=== PATIENT | male | born 1945 | race Caucasian/White ===

== ENCOUNTER 2018-04-04 11:11 | Outpatient (CLI) | payer MEDICARE, BC, SELFPAY ==
[2018-04-04 12:53] LABS: Iron 290 ug/dL (50-175); Total Iron Binding Capacity 324 ug/dL (250-450); Transferrin Sat 90 % (20-55)
[2018-04-05 10:01] LABS: Hepatitis C Ab w Rflx HCV PCR Negative (NEGAT)
[2018-04-05 10:18] LABS: Transferrin 259 mg/dL (201-352)
== END 2018-04-04 11:31 ==
PROVIDERS: PCP Internal Medicine; Visit Provider Internal Medicine
DX: R74.0 Nonspecific elevation of levels of transaminase and lactic acid dehydrogenase [LDH] (principal)
CPT/HCPCS: 36415; 86803; 83540; 83550; 84466

== ENCOUNTER 2018-08-02 10:13 | Outpatient (CLI) | payer MEDICARE, BC, SELFPAY ==
[2018-08-02 11:32] LABS: Absolute Basophil Count 0.05 k/cumm (0.0-0.2); Absolute Eosinophil Count 0.19 k/cumm (0.0-0.7); Absolute Monocyte Count 0.53 k/cumm (0.11-0.7); Absolute Neutrophil Count 2.26 k/cumm (1.2-6.7); Eosinophils % 3.6; HCT 45.6 % (40.0-50.0); HGB 15.8 g/dL (13.5-17.5); Lymphocytes % 42.1; Mean Corp. HGB Concentration 34.6 g/dL (32.0-36.0); Mean Corpuscular Hemoglobin 34.6 pg (27.0-33.0); Mean Platelet Volume 11.6 fL (8.0-11.0); Monocytes % 10.1; Neutrophils % 43.2; Platelet Count 101 x1000/uL (130-400); RBC 4.56 m/cumm (4.50-6.00); White Blood Cell Count 5.23 k/cumm (4.4-10.8)
[2018-08-02 12:00] LABS: Iron 124 ug/dL (50-175); Total Iron Binding Capacity 317 ug/dL (250-450); Transferrin Sat 39 % (20-55)
[2018-08-02 12:14] LABS: ALT 29 U/L (12-78); AST 34 U/L (15-37); Albumin 3.2 g/dL (3.4-5.0); Alkaline Phosphatase 140 U/L (46-116); Anion Gap 6.4 mmol/L (3-11); BUN 7 mg/dL (7-18); Bilirubin, Total 1.3 mg/dL (0.2-1.0); CO2 29.6 mmol/L (21.0-32.0); CREATININE 0.95 mg/dL (0.70-1.30); Calcium 9.2 mg/dL (8.5-10.1); Chloride 102 mmol/L (98-107); Ferritin 287 ng/mL (8-388); Glucose 129 mg/dL (70-100); Sodium 138 mmol/L (136-145); Total Protein 7.6 g/dL (6.4-8.2)
[2018-08-09 23:43] LABS: Specimen WB Whole Blood
== END 2018-08-02 10:33 ==
PROVIDERS: PCP Internal Medicine; Visit Provider Internal Medicine Hematology & Oncology
DX: D64.9 Anemia, unspecified (principal); R79.0 Abnormal level of blood mineral
CPT/HCPCS: 36415; 80053; 81256; 82728; 83540; 83550; 85025

== ENCOUNTER 2018-08-05 00:21 | Outpatient (CLI) | payer MEDICARE, BC, SELFPAY ==
--- NOTE | 2018-08-05 09:16 | DI.US_ITS ---
SYMPTOMS/DIAGNOSIS: ABNORMAL LFTS, ABNORMAL IRON SATURATION, R79.0 ABDOMINAL ULTRASOUND: Routine examination was performed. The aorta is unremarkable, as is the IVC. The liver is enlarged measuring 21 cm. There is diffuse increased echogenicity of the liver consistent with hepatic steatosis. No hepatic mass is seen. The gallbladder and bile ducts are unremarkable. The visualized portions of the pancreas are unremarkable, as is the spleen. The right kidney has a normal appearance. The left kidney is normal in size. There is a 4.9 x 4 x 4 cm hypoechoic solid mass arising from the kidney. It shows increased blood flow. IMPRESSION: 1. A 4.9 cm solid left renal mass. CT scan of the pelvis is recommended with contrast for further evaluation. Renal neoplasm should be considered. 2. Hepatomegaly and hepatic steatosis.
== END 2018-08-05 00:41 ==
PROVIDERS: PCP Internal Medicine; Visit Provider Internal Medicine Hematology & Oncology
DX: N28.89 Other specified disorders of kidney and ureter (principal); R16.0 Hepatomegaly, not elsewhere classified; R79.89 Other specified abnormal findings of blood chemistry; K76.0 Fatty (change of) liver, not elsewhere classified
CPT/HCPCS: 76700

== ENCOUNTER 2018-08-23 01:34 | Outpatient (CLI) | payer MEDICARE, BC, SELFPAY ==
--- NOTE | 2018-08-23 08:30 | DI.CT_ITS ---
SYMPTOM/DIAGNOSIS: EVALUATE LT KIDNEY MASS ON US, N28.[address]: Comparison is made with ultrasound dated 08/05/18 which showed a mass at the lower pole of the left kidney. Images were performed from the lung bases through the ischial tuberosities after IV and oral contrast. There is an irregular mass emanating from the lower pole of the left kidney with irregular borders. It measures 6.4 by 4 by 3.5 cm. There is no evidence of hydronephrosis. The right kidney and adrenal glands appear normal. The heart size is normal. The lung bases are clear. The liver shows fatty infiltration and enlargement. No focal liver lesions or biliary dilatation is seen. The gallbladder is unremarkable. The spleen is mildly enlarged. Pancreas is somewhat atrophic. There are bilateral hip prostheses creating artifact in the pelvis. A right sided bladder diverticulum is partially visible. There appears to be bladder wall thickening. The prostate is obscured. There is mild sigmoid diverticulosis. No small bowel dilatation is seen. The aorta shows calcification but is normal in diameter. 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 IMPRESSION: Mass at the lower pole of the left kidney is suspicious for renal cell carcinoma. No metastatic disease is identified.
[2018-08-23 08:34] LABS: ALT 32 U/L (12-78); AST 30 U/L (15-37); Albumin 3.2 g/dL (3.4-5.0); Alkaline Phosphatase 138 U/L (46-116); BUN 7 mg/dL (7-18); Bilirubin, Total 1.1 mg/dL (0.2-1.0); CREATININE 0.91 mg/dL (0.70-1.30); Chloride 103 mmol/L (98-107); Glucose 138 mg/dL (70-100); Potassium 3.9 mmol/L (3.5-5.1); Sodium 139 mmol/L (136-145)
[2018-08-23] MEDS: Omnipaque 350 MG/ML 50 ML BTL IJ (08:54)
[2018-08-23] MEDS: Breeza Beverage 473 ML BTL PO (08:55)
[2018-08-23] MEDS: Omnipaque 350 MG/ML 100 ML BTL IJ (08:55)
[2018-08-23 13:51] LABS: Ferritin 276 ng/mL (8-388)
== END 2018-08-23 01:54 ==
PROVIDERS: PCP Internal Medicine; Visit Provider Internal Medicine Hematology & Oncology
DX: R79.0 Abnormal level of blood mineral (principal); N28.89 Other specified disorders of kidney and ureter; D41.02 Neoplasm of uncertain behavior of left kidney; R16.2 Hepatomegaly with splenomegaly, not elsewhere classified; K76.0 Fatty (change of) liver, not elsewhere classified; Z96.643 Presence of artificial hip joint, bilateral
CPT/HCPCS: 36415; 80053; 74177; 82728; J3490; Q9967

== ENCOUNTER 2018-11-09 10:17 | Outpatient (RCR) | payer MEDICARE, BC, SELFPAY | END 2018-11-15 23:59 | disposition home or self-care (01) | LOC: CR 10:17 | PROVIDERS: PCP Internal Medicine; Visit Provider Family Medicine | DX: Z51.89 Encounter for other specified aftercare (principal); I25.2 Old myocardial infarction ==

== ENCOUNTER 2018-12-16 11:54 | Outpatient (RCR) | payer MEDICARE, BC, SELFPAY | END 2018-12-16 23:59 | disposition home or self-care (01) | LOC: CR 11:54 | PROVIDERS: PCP Internal Medicine; Visit Provider Family Medicine | DX: Z51.89 Encounter for other specified aftercare (principal); I25.2 Old myocardial infarction | CPT/HCPCS: S9472 ==

== ENCOUNTER 2018-12-26 08:42 | Emergency (ER) | payer MEDICARE, BC, SELFPAY ==
[2018-12-26 08:46] VITALS: BP 121/54; PULSE 81; RESP 18; TEMP 37.1; O2SAT 99
--- NOTE | 2018-12-26 08:46 | ED.GENADUL_ITS ---
Discharge Plan Disposition Patient Disposition: HOME Condition: Stable Discharge Details Chief Complaint: Cellulitis Clinical Impression: Perineal abscess Primary Care Provider: Ngoc Jones ED Provider: Brigitte Green Home Meds and New Rx's Prescriptions: New amoxicillin-pot clavulanate [Augmentin] 875-125 mg tablet 1 tab PO BID Qty: 13 RF: 0 Continued aspirin 81 mg tablet,delayed release (DR/EC) 81 mg PO DAILY RF: 0 atorvastatin 80 mg tablet 80 mg PO DAILY RF: 0 lisinopril 2.5 mg tablet 2.5 mg PO DAILY RF: 0 metoprolol succinate 25 mg tablet extended release 24 hr 25 mg PO DAILY RF: 0 multivitamin tablet 1 tab PO DAILY RF: 0 pantoprazole 40 mg tablet,delayed release (DR/EC) 40 mg PO DAILY RF: 0 furosemide 40 mg tablet 40 mg PO DAILY RF: 0 naproxen sodium [Aleve] 220 MG tablet 440 mg PO PRN RF: 0 Discharge Instructions Instructions: Amoxicillin/Clavulanate Potassium (By mouth), Abscess (ED) Additional Instructions: Please return immediately to the emergency department if you develop any new or worsening symptoms or if you become otherwise concerned. It is extremely important that you attend your scheduled appointment with Dr. Zavaleta of surgery on at 10:00 as we discussed, and also that you call as soon as possible to make an appointment to be seen in follow-up by your primary care doctor. Referrals: Ngoc Jones MD [Primary Care Provider] - Emma Zavaleta DO [OSTEOPATHIC DOCTOR] - Discharge Data Discharge Date/Time-TO BE ENTERED AT DEPARTURE: 12/26/18 10:21 Medical Decision Making Merrill Shrestha is a 73 y/o man with history of GERD, recent partial kidney resection who presented to the emergency department with approximately 1 week of gradually increasing pain and swelling to the perineal area. On exam patient has perineal abscess without cellulitis. Bedside ultrasound shows fluid collection approximately 2 cm deep, does not involve scrotum or anus. Color Doppler negative for flow. Exam/history is not consistent with fourniers gangrene, sepsis, perirectal abscess. Anticipate incision and drainage, will discuss with surgery. FSBG okay. Discussed Pt presentation with Dr. Zavaleta of surgery, who will see patient in follow-up on . Bedside I&D performed with copious amount of purulent drainage, please see procedure note, culture sent. Patient tolerated procedure well without complications. Plan for augmentin Rx. Appointment scheduled with Dr. Zavaleta for 10 AM on . I had a lengthy discussion with the patient regarding return to emergency department precautions, importance of outpatient follow-up with surgery as scheduled and also with PCP, and home care. Patient verbalized understanding of the plan was amenable. Patient was discharged home with clear plan for outpatient follow-up. All questions were answered. Medical Records Medical records reviewed: Yes I reviewed the patient's medical records. HPI General Mode of arrival: ambulatory . Date/Time Provider Initiated Documentation: 12/26/18 08:44 . Limitations to Documentation: no limitations . Information obtained by: patient, RN notes reviewed and old records reviewed . HPI Narrative: Merrill Shrestha is a 73 y/o man with history of GERD, partial kidney resection 11/04 for neoplasm with no further requirement for treatment anticipated presenting to the emergency department with abscess. Patient reports that he has had 3 pilonidal cyst over the past 20 years. He reports that he has had approximately 1 week of gradually increasing pain and swelling to his general area. He reports that affected area (between scrotum and rectum) is not consistent with his prior pilonidal cyst, which he reports as superior to the rectum. Does not recall skin wound or trauma to the area. He denies pain with bowel movements, scrotal pain, pain with urination, any other pain, fevers, vomiting, diarrhea. Has been eating and drinking as usual. Patient feels well in his usual state of health. Related Data Home Medications Medication Instructions Recorded Confirmed naproxen sodium [Aleve] 440 mg PO PRN tab-cap 11/03/16 12/26/18 aspirin 81 mg tablet,delayed 81 mg PO DAILY 11/02/18 12/26/18 release atorvastatin 80 mg tablet 80 mg PO DAILY 11/02/18 12/26/18 furosemide 40 mg tablet 40 mg PO DAILY 11/02/18 12/26/18 lisinopril 2.5 mg tablet 2.5 mg PO DAILY 11/02/18 12/26/18 metoprolol succinate ER 25 mg 25 mg PO DAILY 11/02/18 12/26/18 tablet,extended release 24 hr multivitamin tablet 1 tab PO DAILY 11/02/18 12/26/18 pantoprazole 40 mg tablet,delayed 40 mg PO DAILY 11/02/18 12/26/18 release amoxicillin-pot clavulanate 1 tab PO BID #13 tab 12/26/18 [Augmentin] Previous Rx's Medication Instructions Recorded amoxicillin-pot clavulanate 1 tab PO BID #13 tab 12/26/18 [Augmentin] Allergies Allergy/AdvReac Type Severity Reaction Status Date / Time CAT DANDER Allergy Mild WATER EYES Uncoded 12/26/18 08:50 ENVIRONMENTAL/POLLEN Allergy Mild ITCHY NOSE Uncoded 12/26/18 08:50 WATERY EYES Review of Systems Review of Systems Constitutional: denies fevers Eyes: denies eye pain ENT: denies facial pain, dental pain, sore throat Cardiovascular: denies chest pain Respiratory: denies SOB, cough GI: denies abdominal pain, vomiting, diarrhea, tenesmus : denies flank pain, dysruria MSK: denies back pain, neck pain, arthralgias Skin: denies rash Neuro: denies headaches PFSH Surgical History Arthroplasty Total replacement of hip Family History Father Leukemia Grandfather Heart disease Grandmother Diabetes Social History Smoking/Tobacco Use Status: Never Alcohol Intake: former Drug use: Never Do you feel safe at home: Yes Do you feel safe in your relationship?: Yes Exam Narrative Exam Narrative: Constitutional: well and [id number], pleasant, conversing normally HENT: head atraumatic/normocephalic/normal inspection, mucous membranes moist Eyes: conjunctiva normal, sclera normal, pupils 3mm b/l Neck: no stridor, normal ROM, trachea midline Chest: normal inspection Resp: normal work of breathing, LCTAB Cardio: normal rate, normal rhythm, no murmur appreciated GI: abdomen soft, non-tender, non-distended : 3 x 5 cm area of fluctuance and tenderness just caudal to the scrotum, does not involve anus or perianal region, no drainage, no apparent skin wound, normal scrotum without tenderness or edema Back: normal inspection, no rash Skin: warm, dry, normal color, no rash Neuro: alert, not altered, grossly non-focal, normal tone Ext: no edema Psych: normal mood, normal affect, normal behavior Procedures Abscess I/D Site: Other (perineal) Local Anesthetic: Lidocaine 2% and With Epi Amount of anesthesia used (mL): 4 Technique: Incised with #11 Blade Irrigation: Yes Packing used?: Iodoform
[2018-12-26] MEDS: Lidocaine/Epinephri/Tetracaine Topical Gel 3 ML (09:28)
--- NOTE | 2018-12-26 10:16 | NUR.NOTE ---
Nursing Note: Appt made for patient with [facility] for December 29 @ 10am. Nemo John.
[2018-12-26] MEDS: Amoxicillin 875/Clav. 125 TAB PO (10:18)
== END 2018-12-26 10:21 | disposition home or self-care (01) ==
PROVIDERS: Emergency Provider Student in an Organized Health Care Education/Training Program; PCP Internal Medicine
DX: L02.215 Cutaneous abscess of perineum (principal); R73.01 Impaired fasting glucose
CPT/HCPCS: 10061; 36416; 82962; 99282; 87070; 87205

== ENCOUNTER → 2018-12-29 09:52 | Outpatient (BNVA) | payer MEDICARE, BC, SELFPAY | PROVIDERS: PCP Internal Medicine; Referring Provider Internal Medicine; Visit Provider Surgery | DX: Z48.817 Encounter for surgical aftercare following surgery on the skin and subcutaneous tissue (principal); L02.91 Cutaneous abscess, unspecified; F17.210 Nicotine dependence, cigarettes, uncomplicated | CPT/HCPCS: 99212 ==

== ENCOUNTER 2019-01-13 11:23 | Outpatient (RCR) | payer MEDICARE, BC, SELFPAY | END 2019-01-15 23:59 | disposition home or self-care (01) | LOC: CR 11:23 | PROVIDERS: PCP Internal Medicine; Visit Provider Family Medicine | DX: I25.2 Old myocardial infarction (principal); Z51.89 Encounter for other specified aftercare | CPT/HCPCS: S9472 ==

== ENCOUNTER 2019-01-16 18:50 | Outpatient (RCR) | payer MEDICARE, BC, SELFPAY | END 2019-02-15 23:59 | disposition home or self-care (01) | LOC: CR 18:50 | PROVIDERS: PCP Internal Medicine; Visit Provider Family Medicine | DX: I25.2 Old myocardial infarction (principal); Z51.89 Encounter for other specified aftercare | CPT/HCPCS: S9472 ==

== ENCOUNTER 2019-02-15 13:41 | Outpatient (RCR) | payer MEDICARE, BC, SELFPAY | END 2019-02-15 23:59 | disposition home or self-care (01) | LOC: CR 13:41 | PROVIDERS: PCP Internal Medicine; Visit Provider Internal Medicine | DX: I25.2 Old myocardial infarction (principal); Z51.89 Encounter for other specified aftercare | CPT/HCPCS: S9472 ==

== ENCOUNTER 2019-03-03 13:18 | Outpatient (RCR) | payer MEDICARE, BC, SELFPAY | END 2019-03-18 23:59 | disposition home or self-care (01) | LOC: CR 13:18 | PROVIDERS: PCP Internal Medicine; Visit Provider Family Medicine | DX: I25.2 Old myocardial infarction (principal); Z51.89 Encounter for other specified aftercare | CPT/HCPCS: S9472 ==

== ENCOUNTER 2019-03-13 09:40 | Outpatient (CLI) | payer MEDICARE, BC, SELFPAY ==
[2019-03-13 12:45] LABS: Iron 84 ug/dL (50-175); Total Iron Binding Capacity 339 ug/dL (250-450); Transferrin Sat 25 % (20-55)
[2019-03-13 13:00] LABS: ALT 28 U/L (16-63); AST 34 U/L (15-37); Albumin 3.7 g/dL (3.4-5.0); Alkaline Phosphatase 144 U/L (46-116); Bilirubin, Total 1.1 mg/dL (0.2-1.0); Calculated LDL 66 mg/dL; Cholesterol 154 mg/dL (50-200); Ferritin 146 ng/mL (8-388); HDL Cholesterol 76 mg/dL (40-60); Total Protein 7.7 g/dL (6.4-8.2); Triglyceride 60 mg/dL (30-150)
[2019-03-13 13:32] LABS: Bilirubin, Direct 0.32 mg/dL (0.00-0.20); NT-proBNP 703 pg/mL
== END 2019-03-13 10:00 ==
PROVIDERS: PCP Internal Medicine; Visit Provider Internal Medicine
DX: I50.9 Heart failure, unspecified (principal); D45 Polycythemia vera; B35.1 Tinea unguium; K76.89 Other specified diseases of liver
CPT/HCPCS: 36415; 80061; 80076; 83721; 82728; 83540; 83550; 83880

== ENCOUNTER 2019-08-07 08:52 | Outpatient (CLI) | payer MEDICARE, BC, SELFPAY | END 2019-08-07 09:12 | PROVIDERS: PCP Internal Medicine; Visit Provider Internal Medicine Cardiovascular Disease | DX: I21.4 Non-ST elevation (NSTEMI) myocardial infarction (principal); Z95.1 Presence of aortocoronary bypass graft; I50.9 Heart failure, unspecified; E78.5 Hyperlipidemia, unspecified | CPT/HCPCS: 99204; 99215; 93005; 93010 ==

== ENCOUNTER 2019-09-15 13:42 | Outpatient (RCR) | payer MEDICARE, BC, SELFPAY | END 2019-09-16 23:59 | disposition home or self-care (01) | LOC: CR 13:42 | PROVIDERS: PCP Internal Medicine; Visit Provider Family Medicine | DX: I25.2 Old myocardial infarction (principal); Z51.89 Encounter for other specified aftercare | CPT/HCPCS: S9472 ==

== ENCOUNTER 2019-09-20 10:55 | Outpatient (RCR) | payer MEDICARE, BC, SELFPAY | END 2019-10-17 23:59 | disposition home or self-care (01) | LOC: CR 10:55 | PROVIDERS: PCP Internal Medicine; Visit Provider Family Medicine | DX: I25.2 Old myocardial infarction (principal); Z51.89 Encounter for other specified aftercare | CPT/HCPCS: S9472 ==

== ENCOUNTER 2019-10-06 10:33 | Outpatient (CLI) | payer MEDICARE, BC, SELFPAY ==
[2019-10-06 12:33] LABS: Absolute Basophil Count 0.04 k/cumm (0.0-0.2); Absolute Eosinophil Count 0.17 k/cumm (0.0-0.7); Absolute Lymphocyte Count 1.33 k/cumm (1.2-3.4); Absolute Monocyte Count 0.49 k/cumm (0.11-0.7); Absolute Neutrophil Count 2.61 k/cumm (1.2-6.7); Basophils % 0.9; Eosinophils % 3.7; HCT 44.2 % (40.0-50.0); HGB 14.5 g/dL (13.5-17.5); Lymphocytes % 28.7; Mean Corp. HGB Concentration 32.8 g/dL (32.0-36.0); Mean Corpuscular Hemoglobin 31.9 pg (27.0-33.0); Mean Corpuscular Volume 97.4 fL (80-95); Mean Platelet Volume 11.6 fL (8.0-11.0); Monocytes % 10.6; Neutrophils % 56.1; Platelet Count 117 x1000/uL (130-400); RBC 4.54 m/cumm (4.50-6.00); RBC Distribution Width 15.1 % (11.8-14.1); White Blood Cell Count 4.64 k/cumm (4.4-10.8)
[2019-10-06 12:57] LABS: ALT 34 U/L (16-63); AST 44 U/L (15-37); Albumin 3.5 g/dL (3.4-5.0); Alkaline Phosphatase 175 U/L (46-116); Anion Gap 8.4 mmol/L (3-11); BUN 8 mg/dL (7-18); Bilirubin, Total 0.9 mg/dL (0.2-1.0); CO2 28.6 mmol/L (21.0-32.0); CREATININE 0.93 mg/dL (0.70-1.30); Calcium 8.7 mg/dL (8.5-10.1); Chloride 105 mmol/L (98-107); Glucose 165 mg/dL (74-106); Potassium 4.4 mmol/L (3.5-5.1); Sodium 142 mmol/L (136-145); Total Protein 7.7 g/dL (6.4-8.2)
== END 2019-10-06 10:53 ==
PROVIDERS: PCP Internal Medicine; Visit Provider Internal Medicine
DX: C34.31 Malignant neoplasm of lower lobe, right bronchus or lung (principal); R42 Dizziness and giddiness; R50.9 Fever, unspecified
CPT/HCPCS: 36415; 80053; 85025

== ENCOUNTER 2019-11-01 01:08 | Outpatient (CLI) | payer MEDICARE, BC, SELFPAY ==
--- NOTE | 2019-11-01 10:32 | DI.US_ITS ---
APPROVED REPORT EXAM: Comprehensive 2D, Doppler, and color-flow Echocardiogram Patient Location: Out-Patient [place] Applicator: Sahra Blancas RDCS (AE) Indications: s/p cag, NSTEMI Conclusion Left Ventricle : The left ventricle is normal size. The left ventricular systolic function is normal. The left ventricular ejection fraction is within the normal range. There is normal left ventricular wall thickness. There is normal LV segmental wall motion. The left ventricular diastolic function is normal. LVEF is 50%. Right Ventricle : Right ventricle is not well visualized. Right ventricular systolic function could n ot be assessed. Atria : The left atrium size is normal. Right atrium is not well visualized. Valves: There are no hemodynamically significant valvular lesions. Great Vessels : IVC is normal in size and collapses >50% with inspiration. There is not enough tricu spid regurgitation to estimate RVSP. There is no prior echocardiogram available for comparison. Wall motion Left Ventricle The left ventricle is normal size. The left ventricular systolic function is normal. The left ventric ular ejection fraction is within the normal range. There is normal left ventricular wall thickness. T here is normal LV segmental wall motion. The left ventricular diastolic function is normal. There is no ventricular septal defect visualized. LVEF is 50%. Right Ventricle Right ventricle is not well visualized. Right ventricular systolic function could not be assessed. Atria The left atrium size is normal. Right atrium is not well visualized. The interatrial septum is intact with no evidence for an atrial septal defect. Aortic Valve The Aortic valve is sclerotic. Aortic valve is trileaflet. There is no aortic valvular stenosis. No a ortic regurgitation is present. Mitral Valve There is mitral annular calcification. Mitral valve leaflets are thickened. No evidence of mitral fuad ve stenosis. Trace mitral regurgitation. Tricuspid Valve The tricuspid valve is normal in structure. There is no tricuspid valve stenosis. Trace tricuspid reg urgitation. Pulmonic Valve The pulmonary valve is normal in structure. There is no pulmonic valvular stenosis. Trace pulmonic re gurgitation. Great Vessels The aortic root is normal in size. The ascending aorta is normal in size. IVC is normal in size and c ollapses >50% with inspiration. There is not enough tricuspid regurgitation to estimate RVSP. Pericardium There is no pericardial effusion. 2D Dimensions IVSD d PLAX 1.01 cm M: 0.6-1.2 LV Vol A2C d MOD 81.1 mL LVPW d PLAX 1.04 cm M: 0.6 - 1.2 LV Vol A4C d MOD 109.9 mL LVID d PLAX 4.75 cm M: 4.2 - 5.8 LA vol/ BSA A2C s A-L 28.9 mL/m2 LVDs 3.15 cm M: 2.5 - 4.0 LA vol/ BSA A4C s A-L 39.3 mL/m2 Ao Root d 3.47 cm M: 3.1 - 3.7 LA Vol/ BSA Biplane s A-L 35.2 mL/m2 RA Area A4C 15.46 cm2 LA Area A4C s MOD 22.56 cm2 RA Vol/ BSA A4C s A-L 22.2 mL/m2 LA Area A2C s MOD 18.52 cm2 Ao Asc Diam d 3.38 cm M: 2.6 - 3.4 LV EF A4C MOD 47.4 % LV EF Teichholz 62.4 % LV EF A2C MOD 51.0 % LVEF (Chinchilla's) 49.64 % M: 52 - 72 LV EF Biplane MOD 49.6 % LV Volume 71.15 mL M: 62 - 150 LV Volume Index 35.04 mL/m2 M: 34 - 74 LV Vol Biplane MOD 95.4 mL FS 33.65 % M-Mode TAPSE 1.50 cm (M/F) <1.7 LV Diastology MV E' medial 0.061 (>0.07 m/s) E/A Ratio 0.9 LV E/e MED 11.50 (<14) MV E Vmax 0.70 (0.4-1.3 m/s) MV E' lateral 0.108 (>0.1 m/s) MV A Vmax 0.75 (0.4-1.3 m/s) LV E/e LAT 6.45 (<14) MV E/A Ratio 0.90 MV E/E' medial 11.51 MV E/E' lateral 6.48 Aortic Valve LVOT Area 2.63 cm2 AoV Area Vmax 1.93 cm2 LVOT Vmax 1.00 m/s AoV Area/ BSA (Vmax) 0.95 cm2/m2 LVOT Mean Ken. 0.67 m/s JONO Mean Ken. 1.76 cm2 LVOT Peak Grad 4.0 mmHg JONO Mean Ken. Index 0.86 cm2/m2 LVOT Mean Grad 2.1 mmHg LVOT VTI 0.204 m LVOT Diam s 1.80 cm (M/F) 1.5-2.5 AoV Vmax 1.36 (0.5-1.3 m/s) Velocity Ratio 0.73 AoV Mean Ken. 1.01 m/s AoV Peak Grad 7.4 mmHg LVOT SV 53.63 mL AoV Mean Grad 4.6 (<5 mmHg) AoV VTI 0.258 (0.18-0.25 m) AoV Area VTI 2.08 (2.5-4.5 cm2) AoV Area/ BSA (VTI) 1.02 cm/m2 Mitral Valve MV DT 215 (160-240 msec) MV PHT 62 msec MV Area PHT 3.52 cm2 Pulmonary Valve PV Vmax 1.33 (0.5-1.5 m/s) RVOT Peak Gr. 1.54 mmHg PV Peak Grad 7.1 mmHg RVOT Mean Gr. 0.80 mmHg PV Mean Grad 4.1 mmHg RVOT VTI 0.137 m PV VTI 0.224 m RVOT Vmax 0.62 m/s
== END 2019-11-01 01:28 ==
PROVIDERS: PCP Nurse Practitioner; Visit Provider Internal Medicine Cardiovascular Disease
DX: I21.4 Non-ST elevation (NSTEMI) myocardial infarction (principal); Z95.1 Presence of aortocoronary bypass graft
CPT/HCPCS: 93306

== ENCOUNTER → 2019-11-02 10:29 | Outpatient (BNVA) | payer MEDICARE, BC, SELFPAY | PROVIDERS: PCP Nurse Practitioner; Referring Provider Internal Medicine; Visit Provider Internal Medicine Cardiovascular Disease | DX: I21.4 Non-ST elevation (NSTEMI) myocardial infarction (principal); I25.10 Atherosclerotic heart disease of native coronary artery without angina pectoris; I50.9 Heart failure, unspecified; E78.5 Hyperlipidemia, unspecified | CPT/HCPCS: 99214; 99443 ==

== ENCOUNTER 2020-01-01 01:04 | Outpatient (CLI) | payer MEDICARE, BC, SELFPAY ==
[2020-01-01 13:29] LABS: CREATININE 0.96 mg/dL (0.70-1.30)
[2020-01-01] MEDS: Normal Saline - Diluent 50 ML VIAL IV (13:38)
[2020-01-01] MEDS: Omnipaque 350 MG/ML 100 ML BTL IJ (13:39)
--- NOTE | 2020-01-01 13:43 | DI.CT_ITS ---
EXAM: CT CHEST W CLINICAL HISTORY: ADENOCARCINOMA OF RT LUNG, C34.91 TECHNIQUE: Imaging Protocol: Axial computed tomography images with coronal and sagittal reformatted images were created and reviewed CONTRAST MATERIAL: Intravenous: Omnipaque 350 Contrast volume:[address] RAD ONC CHEST INTER from 07/26/2019 FINDINGS: Tracheobronchial tree: Patent where visualized. Mediastinum and Aleena: No dominant adenopathy or fluid collection. Pulmonary parenchyma: There is now increased density seen in the right upper lobe which is presumably secondary to radiation therapy. The previously noted right upper lobe mass remains visible but appe ars smaller in size, now measuring 17 x 16 millimeters compared with 17 x 23 millimeters on the previ ous exam. No new pulmonary nodules are identified. Pleura: The previously noted left pleural effusion is not seen. No right pleural effusion is identif ied.. Heart: The heart is mildly dilated. coronary artery calcifications are seen. Aorta: Thoracic aorta non-dilated. Mild aortic calcification. Upper abdomen: Nodular, cirrhotic appearing liver. Spleen normal in size.. Lymph nodes: Within normal limits. Bones: Sternal wires. Flowing osteophytes throughout the spine could indicate ankylosing spondylitis . IMPRESSION: Mild interval reduction in size of right upper lobe mass. Surrounding areas of increased density lik marysol reflecting post radiation therapy changes. RADIATION DOSE DELIVERED: 633.6mGy.cm Total DLP DATA REPOSITORY: All CT scans at this facility are submitted to the National Radiology Data Registry (NRDR) Dose Index Registry (DIR) with the [employer] (ACR). RADIATION OPTIMIZATION: All CT scans at this facility use at least one of these dose optimization te chniques: automated exposure control; mA and/or kV adjustment per patient size (includes targeted exa ms where dose is matched to clinical indication); or iterative reconstruction.
== END 2020-01-01 01:24 ==
PROVIDERS: Nurse Practitioner Family; PCP Nurse Practitioner; Visit Provider Radiology Radiation Oncology
DX: C34.31 Malignant neoplasm of lower lobe, right bronchus or lung (principal); J98.4 Other disorders of lung; I51.7 Cardiomegaly; Z92.3 Personal history of irradiation
CPT/HCPCS: 71260; 82565; J3490

== ENCOUNTER 2020-01-12 10:57 | Outpatient (CLI) | payer MEDICARE, BC, SELFPAY ==
[2020-01-12 22:36] LABS: COVID-19 RT-PCR UVMMC Result Negative (Negative)
== END 2020-01-12 11:17 ==
PROVIDERS: PCP Nurse Practitioner; Visit Provider Family Medicine
DX: Z03.818 Encounter for observation for suspected exposure to other biological agents ruled out (principal)
CPT/HCPCS: U0003

== ENCOUNTER 2020-01-16 14:10 | Outpatient (RCR) | payer MEDICARE, BC, SELFPAY | END 2020-01-16 23:59 | disposition home or self-care (01) | LOC: CR 14:10 | PROVIDERS: PCP Nurse Practitioner; Visit Provider Family Medicine | DX: I25.2 Old myocardial infarction (principal); I50.9 Heart failure, unspecified; I25.10 Atherosclerotic heart disease of native coronary artery without angina pectoris; Z51.89 Encounter for other specified aftercare | CPT/HCPCS: S9472 ==

== ENCOUNTER → 2020-02-09 10:43 | Outpatient (BNVA) | payer MEDICARE, BC, SELFPAY | PROVIDERS: PCP Nurse Practitioner; Referring Provider Nurse Practitioner; Visit Provider Internal Medicine Cardiovascular Disease | DX: I25.10 Atherosclerotic heart disease of native coronary artery without angina pectoris (principal); I50.9 Heart failure, unspecified | CPT/HCPCS: 99213 ==

== ENCOUNTER 2020-02-16 10:00 | Outpatient (RCR) | payer MEDICARE, BC, SELFPAY | END 2020-02-16 23:59 | disposition home or self-care (01) | LOC: CR 10:00 | PROVIDERS: PCP Nurse Practitioner; Visit Provider Family Medicine | DX: I25.2 Old myocardial infarction (principal); Z51.89 Encounter for other specified aftercare; I50.9 Heart failure, unspecified; I25.10 Atherosclerotic heart disease of native coronary artery without angina pectoris | CPT/HCPCS: S9472 ==

== ENCOUNTER 2020-04-09 00:21 | Outpatient (CLI) | payer MEDICARE, BC, SELFPAY ==
[2020-04-09 14:48] LABS: CREATININE 1.04 mg/dL (0.70-1.30)
[2020-04-09] MEDS: Omnipaque 350 MG/ML 100 ML BTL 70 ML IJ (15:30)
--- NOTE | 2020-04-09 15:30 | DI.CT_ITS ---
EXAM: CT CHEST W CLINICAL HISTORY: H/O ADENO CA OF RT LUNG,C34.91,S/P RADIATION, ? STATUS OF DISEASE TECHNIQUE: Imaging Protocol: Axial computed tomography images with coronal and sagittal reformatted images were created and reviewed CONTRAST MATERIAL: Intravenous: Omnipaque 350 Contrast volume:structured data in ml. COMPARISON: CT CT CHEST W from 01/01/[address] CHEST W from 01/01/2020 FINDINGS: Tracheobronchial tree: Patent where visualized. Mediastinum and Aleena: No dominant adenopathy or fluid collection. Pulmonary parenchyma: The right upper lobe mass remains stable in size compared with the previous exa mination. No new pulmonary nodules are present. No new areas of consolidation are present. Pleura: No effusion or pneumothorax. Heart: The heart is not dilated. Coronary artery calcifications and/or vascular stents are present. No significant pericardial effusion is present. Aorta: Thoracic aorta non-dilated. Atherosclerosis. Upper abdomen: The liver has a nodular appearance suggesting hepatic cirrhosis. There is diffuse de creased attenuation of the liver consistent with fatty infiltration. Lymph nodes: Within normal limits. Bones: Findings suggestive of ankylosing spondylitis are again noted in the thoracic spine. Status p ost sternotomy. Soft tissues: Unremarkable. IMPRESSION: Stable size of the right upper lobe mass. RADIATION DOSE DELIVERED: 677.17mGy.cm Total DLP DATA REPOSITORY: All CT scans at this facility are submitted to the National Radiology Data Registry (NRDR) Dose Index Registry (DIR) with the [employer] (ACR). RADIATION OPTIMIZATION: All CT scans at this facility use at least one of these dose optimization te chniques: automated exposure control; mA and/or kV adjustment per patient size (includes targeted exa ms where dose is matched to clinical indication); or iterative reconstruction.
[2020-04-09] MEDS: Normal Saline - Diluent 50 ML VIAL IV (15:31)
[2020-04-09] MEDS: Normal Saline Flush 10 ML SYR IVP (15:32)
== END 2020-04-09 00:41 ==
PROVIDERS: PCP Nurse Practitioner; Visit Provider Nurse Practitioner Family
DX: C34.11 Malignant neoplasm of upper lobe, right bronchus or lung (principal); N28.89 Other specified disorders of kidney and ureter; Z13.89 Encounter for screening for other disorder
CPT/HCPCS: 71260; 82565; J3490

== ENCOUNTER → 2020-05-17 09:19 | Outpatient (BNVA) | payer MEDICARE, BC, SELFPAY | PROVIDERS: PCP Nurse Practitioner; Referring Provider Nurse Practitioner; Visit Provider Physical Therapy Assistant | DX: Z12.11 Encounter for screening for malignant neoplasm of colon (principal); Z86.010 Personal history of colon polyps ==

== ENCOUNTER 2020-05-30 07:38 | Outpatient (CLI) | payer MEDICARE, BC, SELFPAY ==
[2020-06-01 10:17] LABS: SARS-CoV-2 RNA Not Detected (NotDetected); SARS-CoV-2 RNA Source Nasal/Nares
== END 2020-05-30 07:58 ==
PROVIDERS: PCP Nurse Practitioner; Visit Provider Surgery
DX: Z11.59 Encounter for screening for other viral diseases (principal); Z01.818 Encounter for other preprocedural examination
CPT/HCPCS: U0003

== ENCOUNTER 2020-06-03 07:06 | Day surgery (SDC) | payer MEDICARE, BC, SELFPAY ==
--- NOTE | 2020-06-03 06:42 | W.COLOREPORT ---
Date of service: 06/03/20 Time of Service: 08:52 Colonoscopy Report Date of procedure: 06/03/20 Pre-op diagnosis general: Colon Cancer Screening, hx of polyps Post-op diagnosis procedure note: other (Diverticulosis, internal and external hemorrhoids, polyps) Procedure: Colonoscopy with polypectomy Surgeon: Saba Power Anesthesia proc note operative: other (General/ASA 3/Elvia Patel, AURY) Estimated blood loss (mL): 5 Pathology: other (Transverse colon polyps, descending polyps x2, sigmoid polyps x2) Complications: None Disposition: same day Indications: The patient is here for Colonoscopy pre-op. His last screening was in 2008 and was remarkable for Tubular adenoma and hyperplastic polyp. He has no family history of colon cancer. He has not had any bowel habit changes. -Discussed colonoscopy bowel prep as well as the procedure. Discussed possible complications of the procedure to include bleeding, pain, perforation, missed small lesion/polyp, sore throat, aspiration and adverse reaction to the medications. Questions were answered to patient?s satisfaction. No guarantees were implied or given. Prep: Miralax/Dulcolax Procedure Start Time: :52 Procedure End Time: 09:32 Retraction Time: 34 minutes Findings: multiple small sessile polyps mild diverticulosis of sigmoid colon internal hemorrhoids and skin tags external hemorrhoid Procedure Description: After informed consent was obtained the patient was taken to the procedure room and placed in a left decubitous position. Monitors were applied and a time out was done. The patients name, date of , procedure, allergies to medications and metal in their body was reviewed. The patient was then sedated. Once sedated and comfortable a rectal exam was done. External exam showed Grade 1 external hemorrhoids. Internal exam revealed a normal sphincter tone and no palpable masses. The prostate felt smooth. The scope was then introduced and retro-flexed. Grade 1 internal hemorrhoids and hemorrhoidal skin tags were identified. The scope was then advanced to the cecum without difficulty. The ileocecal vlave and appendiceal orifice were identified. The prep was good. The scope was then slowly retracted over 34 minutes back into the rectum. Polyps were removed with cold forceps in the transverse colon x1, descending colon x2, and sigmoid colon x2. All polyps were sessile and < 10 cm in size. There was mild diverticulosis of the sigmoid colon. The scope was removed and the patient was woken up and taken back to Same day surgery in stable condition. The patient tolerated the procedure well and there were no immediate complications. Follow up: The patient should follow up in 3-5 years unless they develop changes in bowel habits or other new gastrointestinal complaints.
--- NOTE | 2020-06-03 06:43 | W.PM.DSUDISC ---
Discharge Plan Disposition Patient Disposition: HOME Condition: Good Discharge Details Reason For Visit: Colonoscopy Attending Provider: Saba Power Primary Care Provider: Cecilia Dubose Home Meds and New Rx's Prescriptions: Continued pantoprazole 40 mg tablet,delayed release (DR/EC) 40 mg PO DAILY Qty: 90 RF: 3 lisinopril 2.5 mg tablet 2.5 mg PO DAILY Qty: 90 RF: 3 atorvastatin 80 mg tablet 80 mg PO DAILY Qty: 90 RF: 3 aspirin 81 mg tablet,delayed release (DR/EC) 81 mg PO DAILY RF: 0 multivitamin tablet 1 tab PO DAILY RF: 0 metoprolol succinate 50 mg tablet extended release 24 hr 50 mg PO DAILY Qty: 90 RF: 3 naproxen sodium [Aleve] 220 MG tablet 440 mg PO PRN RF: 0 Discontinued polyethylene glycol 3350 17 gram/dose powder 238 g PO ONCE Qty: 238 RF: 0 bisacodyl [Dulcolax (bisacodyl)] 5 mg tablet,delayed release (DR/EC) 5 mg PO ONCE Qty: 4 RF: 0 Discharge Instructions Instructions: Diverticulosis (DC), Hemorrhoids (DC), Colorectal Polyps (DC) Additional Instructions: Findings: 5 polyps that were small mild diverticulosis internal and external hemorrhoids Follow up: 3-5 years Please call if you develop: fevers >101.5 Nausea or Vomiting Abdominal pain that is not transient DAY SURGERY UNIT POST ENDOSCOPY INSTRUCTIONS 1. Because there will be medication in your system for the next 24 hours, you may feel a little sleepy. Your coordination will be affected. Therefore: a. Do not drive or operate dangerous equipment for 24 hours. b. Do not drink alcohol beverages for 24 hours (not even beer). c. Plan to go home and rest for the day. 2. Generally there are no restrictions on your activity after a day or so has gone by, but you may feel a bit fatigued for a few days. 3 After you arrive home you may have a light meal and return to a normal diet as you can tolerate it without feeling sick to your stomach. 4. After surgery, you may feel pain or discomfort. This should be only transient, but if it persists please contact your doctor. 5. If there are any questions regarding the findings of your procedure, please feel free to contact your doctor. 6. If you are unable to contact your doctor with a problem, contact the [facility] at [phone]. 1. Continue all your regular medications unless directed otherwise. I understand the above instructions and have no questions. Signature of Patient or Responsible Adult Escort Date/Time Name of Responsible Adult Escort Signature of Nurse Date/Time Activity:: Activity as Tolerated Diet:: High Fiber diet Discharge Orders Discharge Orders: Discharge Order (Routine); Ordered 06/03/20 Ordered By: Saba Power
[2020-06-03 07:36] VITALS: BP 141/79; PULSE 87; RESP 16; TEMP 36.9; O2SAT 96
[2020-06-03] MEDS: Lactated Ringers 1,000 ML 80 ML IV (07:50)
--- NOTE | 2020-06-03 09:10 | BOWEL_PTH ---
PATIENT: Merrill Shrestha LOC: [facility] U#:[id number] AGE/SX: 75/M ROOM: RE06/03/[address]: Saba Power MD : 1945 BED: DIS: 06/03/2020 SPEC #: [id number] RECD: 06/03/20 12:27 STATUS: SYDNEY REDianna #: [id number] TRANG: 06/03/20 09:[address]: Saba Power DEPT: Surgical Specimen RECD BY: Lucille Chang ENTERED: 06/03/20 12:28 SP TYPE: Bowel OTHR DR: Cecilia Dubose, PhD POT FIRER Tissues: 1 - BIOPSY BOWEL 2 - BIOPSY BOWEL 3 - BIOPSY BOWEL Procedures: GROSS AND MICRO LEVEL 4 Comments: [id number] ([id number] [facility]#)
[2020-06-03 10:10] VITALS: BP 141/84; PULSE 90; RESP 16; TEMP 36.6; O2SAT 98
== END 2020-06-03 10:36 | disposition home or self-care (01) ==
LOC: SUR 07:07 → DSU 07:18
PROVIDERS: PCP Nurse Practitioner; Visit Provider Surgery
PROC: 0DJD8ZZ Inspection of Lower Intestinal Tract, Via Natural or Artificial Opening Endoscopic (ICD-10-PCS; CPT 45378; principal; 2020-06-03 08:15)
DX: Z12.11 Encounter for screening for malignant neoplasm of colon (principal); Z86.010 Personal history of colon polyps; Z87.19 Personal history of other diseases of the digestive system; D12.4 Benign neoplasm of descending colon; K63.5 Polyp of colon; K57.30 Diverticulosis of large intestine without perforation or abscess without bleeding; K64.0 First degree hemorrhoids; K64.4 Residual hemorrhoidal skin tags; K21.9 Gastro-esophageal reflux disease without esophagitis
CPT/HCPCS: 45380; 88305; J2001; J2704

== ENCOUNTER 2020-07-29 01:06 | Outpatient (CLI) | payer MEDICARE, BC, SELFPAY ==
--- NOTE | 2020-07-29 12:00 | DI.CT_ITS ---
EXAM: CT CHEST W CLINICAL HISTORY: F/U ADENO LUNG CA,C34.91,METASTATIC,ASSESS TREATMENT RESPONSE. TECHNIQUE: Multi planar reconstructions were performed. CONTRAST MATERIAL: Omnipaque 350; 75 cc COMPARISON: CT CT CHEST W from 04/09/2020 FINDINGS: CHEST: LUNGS: There is unchanged appearance of the infiltrate-mass in the right upper lobe. No other new ri ght lung findings nor pleural effusion. No significant left lung findings. No left pleural effusion MEDIASTINUM: There is no hilar nor mediastinal adenopathy. Visualized thyroid unremarkable. CARDIAC: There are sternotomy wires again noted. Heart size is normal. There is no pericardial effu jose.Caliber of the thoracic aorta is within normal limits. VISUALIZED UPPER ABDOMEN:There are no significant adrenal masses. Liver is hypodense and cirrhotic a ppearing including significant enlargement of the caudate lobe. No ascites evident. OSSEOUS: No significant osseous lesions.Calcification in the anterior longitudinal ligament throughou t the thoracic spinal column is noted there are no compression fractures.. IMPRESSION: 1. Continued stable appearance of the infiltrate-mass right upper lobe, unchanged from 04/09/2020. N o new pulmonary findings and no pleural effusions. No new intrathoracic adenopathy. 2. Sternotomy wires again noted. There is no pericardial effusion. 3. Hepatic cirrhosis again noted. There is no evidence of ascites at this time. RADIATION DOSE DELIVERED: 613.87mGy.cm Total DLP DATA REPOSITORY: All CT scans at this facility are submitted to the National Radiology Data Registry (NRDR) Dose Index Registry (DIR) with the [employer] (ACR). RADIATION OPTIMIZATION: All CT scans at this facility use at least one of these dose optimization te chniques: automated exposure control; mA and/or kV adjustment per patient size (includes targeted exa ms where dose is matched to clinical indication); or iterative reconstruction.
[2020-07-29 12:09] LABS: CREATININE 1.07 mg/dL (0.70-1.30)
[2020-07-29] MEDS: Omnipaque 350 MG/ML 100 ML BTL IJ (13:18)
[2020-07-29] MEDS: Normal Saline - Diluent 50 ML VIAL IV (13:19)
== END 2020-07-29 01:26 ==
PROVIDERS: PCP Nurse Practitioner; Visit Provider Nurse Practitioner Family
DX: C34.11 Malignant neoplasm of upper lobe, right bronchus or lung (principal); K74.60 Unspecified cirrhosis of liver; N28.89 Other specified disorders of kidney and ureter
CPT/HCPCS: 71260; 82565; J3490

== ENCOUNTER → 2020-08-08 10:41 | Outpatient (BNVA) | payer MEDICARE, BC, SELFPAY | PROVIDERS: PCP Nurse Practitioner; Referring Provider Nurse Practitioner; Visit Provider Internal Medicine Cardiovascular Disease | DX: I25.10 Atherosclerotic heart disease of native coronary artery without angina pectoris (principal); Z95.1 Presence of aortocoronary bypass graft | CPT/HCPCS: 99213 ==

== ENCOUNTER 2020-09-19 04:11 | Outpatient (CLI) | payer MEDICARE, BC, SELFPAY ==
[2020-09-19 11:09] LABS: ALT 39 U/L (16-63); AST 45 U/L (15-37); Albumin 3.5 g/dL (3.4-5.0); Alkaline Phosphatase 120 U/L (46-116); Bilirubin, Total 1.2 mg/dL (0.2-1.0); CREATININE 1.1 mg/dL (0.70-1.30); Calculated LDL 119 mg/dL (<100); Cholesterol 207 mg/dL (<200); HDL Cholesterol 63 mg/dL (40-60); Potassium 4.5 mmol/L (3.5-5.1); Triglyceride 125 mg/dL (<150)
[2020-09-19 11:21] LABS: Bilirubin, Direct 0.37 mg/dL (0.00-0.20)
== END 2020-09-19 04:12 | disposition home or self-care (01) ==
LOC: LBO 04:11
PROVIDERS: PCP Nurse Practitioner; Visit Provider Nurse Practitioner
DX: I10 Essential (primary) hypertension (principal); K74.60 Unspecified cirrhosis of liver; I25.2 Old myocardial infarction
CPT/HCPCS: 36415; 80061; 80076; 82565; 84132

== ENCOUNTER 2020-11-22 04:23 | Outpatient (CLI) | payer MEDICARE, BC, SELFPAY ==
--- NOTE | 2020-11-22 | DI.CT_ITS ---
Exam(s) CT CHEST/ABD/PEL W EXAM: CT CHEST/ABD/PEL W CLINICAL HISTORY: RUL LUNG CA,C34.11,LT RENAL CA,C64.2,S/P RADIATION,H/O LT PARTIAL NEPHRECTO TECHNIQUE: Imaging Protocol: Axial computed tomography images with coronal and sagittal reformatted images were created and reviewed CONTRAST MATERIAL: Intravenous: Omnipaque 350 Contrast volume:100 mL Oral: Yes CT CT CHEST W from 07/29/2020 FINDINGS: CHEST: Tracheobronchial tree: Patent where visualized. Pulmonary parenchyma: There is no change in the scarring/mass in the right upper lobe. No pulmonary i nfiltrates are seen. No new pulmonary nodules or masses are present. Visualized thyroid gland: Unremarkable. Mediastinum and Aleena: No dominant adenopathy or fluid collection. Pleura: No effusion or pneumothorax. Heart: The heart is not dilated. Marked coronary artery calcification versus stents. No pericardial e ffusion. Aorta: Thoracic aorta non-dilated. Atherosclerosis. Lymph nodes: Within normal limits. Soft tissues: Unremarkable. Bones:There is ankylosis of the thoracic spine. Sternal wires are in place. ABDOMEN: Liver: Normal density. No measurable mass. Liver has a lobulated contour suspicious for hepatic cirrh osis. Portal, Superior Mesenteric, and Splenic Veins: Unremarkable. Gallbladder and Biliary Tract: No radiodense calculus or dilation. Pancreas: Normal density, no abnormal calcifications or inflammatory process. Spleen: Normal. Adrenals: No masses seen. Kidneys: Partial left nephrectomy. No radiodense stones or obstructive uropathy. No masses seen. Abdominal Aorta: Abdominal portion non-dilated. Moderate atherosclerosis. Bowel: No obstruction or bowel wall thickening. No evidence of appendicitis. Sigmoid diverticulosis b ut no evidence of acute diverticulitis. Peritoneal Cavity: No ascites, collection or mesenteric inflammatory response. No free air. Lymph Nodes: Within normal limits. Bones: The patient has bilateral total hip replacements. There is ankylosis of the sacroiliac joints bilaterally. Degenerative changes are present in the spine. No suspicious lytic or sclerotic lesions are seen Soft Tissues: Unremarkable. PELVIS: Bladder: There is a large diverticulum off the right side of the urinary bladder. There is diffuse th ickening of the wall of the urinary bladder. There is contrast seen within the urinary bladder. Reproductive Organs: Unremarkable as visualized. Lymph Nodes: Within normal limits. Bones: Within normal limits. IMPRESSION: 1. No evidence of metastatic disease in the abdomen or pelvis. 2. No acute abdominal or pelvic process. 3. Stable right upper lobe pulmonary mass. RADIATION DOSE DELIVERED: 1,875.73mGy.cm Total DLP DATA REPOSITORY: All CT scans at this facility are submitted to the National Radiology Data Registry (NRDR) Dose Index Registry (DIR) with the [employer] (ACR). RADIATION OPTIMIZATION: All CT scans at this facility use at least one of these dose optimization te chniques: automated exposure control; mA and/or kV adjustment per patient size (includes targeted exa ms where dose is matched to clinical indication); or iterative reconstruction.
[2020-11-22] MEDS: Omnipaque 350 MG/ML 50 ML BTL PO (12:41)
[2020-11-22] MEDS: Breeza Beverage 473 ML BTL PO ×2 (12:41→12:42)
[2020-11-22 13:27] LABS: Anion Gap 6.8 mmol/L (3-11); BUN 11 mg/dL (7-18); CO2 26.2 mmol/L (21.0-32.0); CREATININE 0.9 mg/dL (0.70-1.30); Chloride 104 mmol/L (98-107); Glucose 119 mg/dL (74-106); Potassium 4.4 mmol/L (3.5-5.1); Sodium 137 mmol/L (136-145)
[2020-11-22] MEDS: Omnipaque 350 MG/ML 100 ML BTL IJ (14:28)
[2020-11-22] MEDS: Normal Saline - Diluent 50 ML VIAL IV (14:29)
== END 2020-11-22 04:43 ==
PROVIDERS: PCP Nurse Practitioner; Visit Provider Nurse Practitioner
DX: C34.11 Malignant neoplasm of upper lobe, right bronchus or lung (principal); Z92.3 Personal history of irradiation; N32.3 Diverticulum of bladder; N32.89 Other specified disorders of bladder; C64.2 Malignant neoplasm of left kidney, except renal pelvis
CPT/HCPCS: 74177; 80048; 71260; J3490; Q9967

== ENCOUNTER 2020-12-18 01:53 | Outpatient (CLI) | payer MEDICARE, BC, SELFPAY ==
[2020-12-18] MEDS: Normal Saline - Diluent 50 ML VIAL IV (09:39)
[2020-12-18] MEDS: Omnipaque 350 MG/ML 100 ML BTL IJ (09:39)
--- NOTE | 2020-12-18 09:41 | DI.CT_ITS ---
Exam(s) CT HEAD WO/W EXAM: CT HEAD WO/W CLINICAL HISTORY: ongoing TEMPORAL HEADACHE,R51.9. TECHNIQUE: Imaging Protocol: Axial computed tomography images with coronal and sagittal reformatted images were created and reviewed. CONTRAST MATERIAL: Intravenous: Omnipaque 350 Contrast volume:100 mL. COMPARISON: No exams were available for comparison FINDINGS: Ventricles and Extra axial spaces: There is a 0.5 cm round hyperdense mass at the foramen of Monro. There is mild asymmetric dilatation of the left lateral ventricle. Hemorrhage: None. Cerebral parenchyma: No acute territorial infarct. There is subtle areas of decreased attenuation in the white matter suggestive of small vessel ischemic disease. Enhancement: No suspicious enhancement. [place]: Unremarkable. Midline shift: None. Brainstem/Cerebellum: Normal. Calvarium: Normal. Visualized Paranasal sinuses/Mastoids: There is mild mucosal thickening in the maxillary sinuses bila terally. The remaining visualized paranasal sinuses and mastoid air cells are clear. 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 Mild dilatation of the left lateral ventricle which may reflect hydrocephalus. M RI may be considered for further evaluation. RADIATION DOSE DELIVERED: 1,729.98mGy.cm Total DLP 1,729.98mGy.cm Total DLP DATA REPOSITORY: All CT scans at this facility are submitted to the National Radiology Data Registry (NRDR) Dose Index Registry (DIR) with the [employer] (ACR). RADIATION OPTIMIZATION: All CT scans at this facility use at least one of these dose optimization te chniques: automated exposure control; mA and/or kV adjustment per patient size (includes targeted exa ms where dose is matched to clinical indication); or iterative reconstruction.
== END 2020-12-18 02:13 ==
PROVIDERS: PCP Nurse Practitioner; Visit Provider Nurse Practitioner
DX: R51.9 Headache, unspecified (principal); R94.02 Abnormal brain scan
CPT/HCPCS: 70470; J3490

== ENCOUNTER 2021-01-22 01:31 | Outpatient (CLI) | payer MEDICARE, BC, SELFPAY ==
--- NOTE | 2021-01-22 08:15 | DI.MRI_ITS ---
Exam(s) MR ANGIO BRAIN WO CLINICAL HISTORY: temporal pain,HEADACHE,R51.9,R93.0,F/U ABNL HEAD CT. TECHNIQUE: Multiplanar multisequence MRA of the brain was performed. COMPARISON: None. FINDINGS: Carotid Arteries: No aneurysm, occlusion or significant stenosis. Anterior Cerebral Arteries: Right: No aneurysm, occlusion or significant stenosis. Left: No aneurysm, occlusion or significant stenosis. Middle Cerebral Arteries: Right: No aneurysm, occlusion or significant stenosis. Left: No aneurysm, occlusion or significant stenosis. Posterior Cerebral Arteries: Right: No aneurysm, occlusion or significant stenosis. It arises predominantly from the right hand presser ior communicating artery. This is a normal variant. Left: No aneurysm, occlusion or significant stenosis. Vertebral Arteries: Right: No aneurysm, occlusion or significant stenosis. Left: No aneurysm, occlusion or significant stenosis. Basilar Artery: No aneurysm, occlusion or significant stenosis. IMPRESSION: Normal MRA examination of the [place]. DATA REPOSITORY:
--- NOTE | 2021-01-22 08:15 | DI.MRI_ITS ---
Exam(s) MR BRAIN WO/W EXAM: MR BRAIN WO/W CLINICAL HISTORY: tempoRAL PAIN,HEADACHE,R51.9,F/U ABNL CT HEAD,R93.0 TECHNIQUE: Multiplanar multisequence MRI of the brain was performed. CONTRAST MATERIAL: IV Contrast: 20 ML of Dotarem contrast administered. COMPARISON: CT CT HEAD WO/W from 12/18/2020 FINDINGS: The examination is severely limited due to patient motion artifact. VENTRICLES AND EXTRA AXIAL SPACES: Normal in size and morphology for the patient's age. There does ap pear to be a 4 mm nonenhancing mass in the 3rd ventricle near the region of the foramen of Monro. It is suggested on the noncontrast T1 weighted and FLAIR axial images. There is some asymmetry in size of the ventricles. The left ventricle slightly larger than the right. HEMORRHAGE: None. CEREBRAL PARENCHYMA: No focus of restricted diffusion to suggest acute infarct. No space-occupying le jose identified. MIDLINE SHIFT: None. BRAINSTEM/CEREBELLUM: Normal. CALVARIUM: Normal. ENHANCEMENT: No suspicious enhancement identified. VISUALIZED PARANASAL SINUSES/MASTOIDS: Clear. [place]: Normal flow void. [place]IT[place]: Unremarkable. OTHER FINDINGS: IMPRESSION: 1. Examination limited due to patient motion and patient positioning. 2. 4 mm mass near the foramen of Monro suggested on the axial images as described above. This was be st appreciated on the CT scan. 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 A repeat CT scan of the brain is recommended for re-evaluation. The possibility of a focal hemorrhage cannot be excluded. DATA REPOSITORY:
[2021-01-22] MEDS: Normal Saline Flush 10 ML SYR IVP (12:30)
[2021-01-22] MEDS: Gadoterate meglumine 20 ML VIAL IVP (12:30)
== END 2021-01-22 01:51 ==
PROVIDERS: PCP Nurse Practitioner; Visit Provider Nurse Practitioner
DX: G93.89 Other specified disorders of brain (principal); R93.0 Abnormal findings on diagnostic imaging of skull and head, not elsewhere classified; R51.9 Headache, unspecified
CPT/HCPCS: 70544; 70553

== ENCOUNTER → 2021-02-12 08:55 | Outpatient (BNVA) | payer MEDICARE, BC, SELFPAY | PROVIDERS: PCP Nurse Practitioner; Visit Provider Nurse Practitioner Adult Health | DX: G44.209 Tension-type headache, unspecified, not intractable (principal); R90.89 Other abnormal findings on diagnostic imaging of central nervous system; K74.60 Unspecified cirrhosis of liver; I25.2 Old myocardial infarction; I25.10 Atherosclerotic heart disease of native coronary artery without angina pectoris; C34.90 Malignant neoplasm of unspecified part of unspecified bronchus or lung; C64.9 Malignant neoplasm of unspecified kidney, except renal pelvis; I50.9 Heart failure, unspecified; K21.9 Gastro-esophageal reflux disease without esophagitis; R73.01 Impaired fasting glucose; I10 Essential (primary) hypertension; E78.5 Hyperlipidemia, unspecified | CPT/HCPCS: 64405; 99204; 99215 ==

== ENCOUNTER 2021-02-19 01:46 | Outpatient (CLI) | payer MEDICARE, BC, SELFPAY ==
--- NOTE | 2021-02-19 07:30 | DI.CT_ITS ---
Exam(s) CT HEAD WO EXAM: CT HEAD WO CLINICAL HISTORY: hx abnorml head CT without improvement in symptoms,TEMPORAL HEADACHE,R90.89. TECHNIQUE: Imaging Protocol: Axial computed tomography images with coronal and sagittal reformatted images were created and reviewed COMPARISON: CT CT HEAD WO/W from 12/18/2020 FINDINGS: There are no skull fractures nor fluid in the visualized paranasal sinuses. No evidence of intracranial hemorrhage. Again noted is the previously described 6 x 5 millimeter abn ormal hyperdensity in the foramen of Monro with mild asymmetric dilatation of left lateral ventricle again noted, unchanged. 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 IMPRESSION: Again noted is a 5-6 millimeter round hyperdense mass at the foramen of Monro with mild dilatation of the left lateral ventricle above this level. 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 This certainly can be the cause of headaches. If clinically indicated follow-up MRI can be performed. RADIATION DOSE DELIVERED: 805mGy.cm Total DLP DATA REPOSITORY: All CT scans at this facility are submitted to the National Radiology Data Registry (NRDR) Dose Index Registry (DIR) with the [employer] (ACR). RADIATION OPTIMIZATION: All CT scans at this facility use at least one of these dose optimization te chniques: automated exposure control; mA and/or kV adjustment per patient size (includes targeted exa ms where dose is matched to clinical indication); or iterative reconstruction.
== END 2021-02-19 02:06 ==
PROVIDERS: PCP Nurse Practitioner; Visit Provider Nurse Practitioner Adult Health
DX: R51.9 Headache, unspecified (principal); R90.89 Other abnormal findings on diagnostic imaging of central nervous system
CPT/HCPCS: 70450

== ENCOUNTER → 2021-02-26 08:56 | Outpatient (BNVA) | payer MEDICARE, BC, SELFPAY | PROVIDERS: PCP Nurse Practitioner; Referring Provider Nurse Practitioner; Visit Provider Nurse Practitioner Adult Health | DX: R51.9 Headache, unspecified (principal) | CPT/HCPCS: 64405; 99213; 99214 ==

== ENCOUNTER 2021-03-14 14:28 | Emergency (ER) | payer MEDICARE, BC, SELFPAY ==
[2021-03-14 14:33] VITALS: BP 151/78; PULSE 104; RESP 20; TEMP 36.7; O2SAT 97
--- NOTE | 2021-03-14 14:45 | DI.CT_ITS ---
Exam(s) CT HEAD WO EXAM: CT HEAD WO CLINICAL HISTORY: Worsening Headaches TECHNIQUE: COMPARISON: CT CT HEAD WO from 02/19/2021 FINDINGS: Noncontrast CT was performed. There is moderate generalized cerebral atrophy. 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 No gross ventriculomegaly. There is no evidence of acute intracranial hemorrhage, mass effect, midline shift. The orbital and t emporal bone structures appear intact. Visualized mastoid air cells and paranasal sinuses are clear. IMPRESSION: No evidence of acute change. Additional evaluation with MR of the brain may be obtained if clinicall y appropriate. RADIATION DOSE DELIVERED: 876.47mGy.cm Total DLP 39.59mGy CTDIvol RADIATION OPTIMIZATION: All CT scans at this facility use at least one of these dose optimization te chniques: automated exposure control; mA and/or kV adjustment per patient size (includes targeted exa ms where dose is matched to clinical indication); or iterative reconstruction.
--- NOTE | 2021-03-14 14:55 | W.ED.GENAD ---
Discharge Plan Disposition Patient Disposition: HOME Condition: Stable Discharge Details Clinical Impression: Chronic headache Primary Care Provider: Cecilia Dubose ED Provider: Monique Price Home Meds and New Rx's Prescriptions: No Action pantoprazole 40 mg tablet,delayed release (DR/EC) 40 mg PO DAILY Qty: 90 RF: 3 atorvastatin 80 mg tablet 80 mg PO DAILY Qty: 90 RF: 3 lisinopril 2.5 mg tablet 2.5 mg PO DAILY RF: 0 hydroxyzine HCl 25 mg tablet See Rx Instructions PO QID PRN (Reason: itching) Qty: 60 RF: 3 topiramate [Topamax] 50 mg tablet 50 mg PO QHS Qty: 30 RF: 3 aspirin 81 mg tablet,delayed release (DR/EC) 81 mg PO DAILY RF: 0 metoprolol succinate 50 mg tablet extended release 24 hr 50 mg PO DAILY Qty: 90 RF: 3 naproxen sodium [Aleve] 220 MG tablet 440 mg PO PRN RF: 0 prednisone 20 mg tablet 20 mg PO DAILY Qty: 10 RF: 0 divalproex [Depakote] 500 mg tablet,delayed release (DR/EC) 500 mg PO BID 5 Days Qty: 10 RF: 0 Discharge Instructions Instructions: General Headache (ED) Additional Instructions: The Ct and labs show no change or any acute abnormality to explain your symptoms. 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 Follow up with neurology as previously scheduled. Take the pain medications with food as directed. Do not drive or operate heavy machinery while taking medications. Follow up with PCP in 3-5 days. Increase oral fluids. Try calling to make an appointment at [facility]. Headache Center Phone and Contact Information [facility] [phone] [address] [facility] [address] [facility] [employer] [address] [place] [address] Referrals: Cecilia Dubose NP [Primary Care Provider] - Jemima Spain MD [ [facility] STAFF PHYSICIAN] - 2 weeks Medical Decision Making 75 year old male with a history of chronic temporal headaches who is followed by Neurology and PCP presents to ED with worsening right sided headaches over the last week. Patient has no focal neuro deficits on exam, denies recent head injury, denies numbness, tingling or weakness. Has been taking his prescribed medications as directed. Patient was recently seen by Neurology on 02-26-21 and prescribed topiramate and received a occipital nerve block. Patient also states he will not last the night if these headaches don't stop. At this time will order labs, Head CT to rule out change from previous and Compazine and benadryl. Spoke with radiologist regarding head CT, No significant change from previous CT. recommends follow up MRI as outpatient. Patient re-evaluated, no real change after compazine. Toradol and Morphine IV ordered. EXAM: CT HEAD WO CLINICAL HISTORY: Worsening Headaches FINDINGS: Noncontrast CT was performed. There is moderate generalized cerebral atrophy. 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 No gross ventriculomegaly. There is no evidence of acute intracranial hemorrhage, mass effect, midline shift. The orbital and temporal bone structures appear intact. Visualized mastoid air cells and paranasal sinuses are clear. IMPRESSION: No evidence of acute change. Additional evaluation with MR of the brain may be obtained if clinically appropriate. 1652: Patient re-evaluation, sleeping after morphine and toradol. Plan to discharge home with Tramadol and follow up with neurology. Medical Records Medical records reviewed: Yes I reviewed the patient's medical records. Medical records narrative: CT Head W/O 02/19/21 and MRI brain with contrast 01/22/21 HPI General Mode of arrival: ambulatory. Date/Time Provider Initiated Documentation: 03/14/21 14:30. Limitations to Documentation: no limitations. Information obtained by: patient, RN notes reviewed and old records reviewed. HPI Narrative: 75 year old male with a history of chronic temporal headaches who is followed by Neurology and PCP presents to ED with worsening right sided headaches over the last week. Patient has no focal neuro deficits on exam, denies recent head injury, denies numbness, tingling or weakness. Has been taking his prescribed medications as directed. Patient was recently seen by Neurology on 02-26-21 and prescribed topiramate and received a occipital nerve block. Patient also states he will not last the night if these headaches don't stop. Related Data Home Medications Medication Instructions Recorded Confirmed naproxen sodium [Aleve] 440 mg PO PRN tab-cap 11/03/16 03/14/21 aspirin 81 mg tablet,delayed 81 mg PO DAILY 11/02/18 03/14/21 release atorvastatin 80 mg tablet 80 mg PO DAILY #90 tab 09/20/19 03/14/21 pantoprazole 40 mg tablet,delayed 40 mg PO DAILY #90 tab 09/20/19 03/14/21 release metoprolol succinate 50 mg 50 mg PO DAILY #90 tab 11/02/19 03/14/21 tablet,extended release 24 hr prednisone 20 mg tablet 20 mg PO DAILY #10 tab 02/04/21 03/14/21 hydroxyzine HCl 25 mg tablet See Rx Instructions PO QID PRN #60 02/12/21 03/14/21 tab lisinopril 2.5 mg tablet 2.5 mg PO DAILY tab 02/12/21 03/14/21 topiramate 50 mg tablet 50 mg PO QHS #30 tab 02/26/21 03/14/21 divalproex 500 mg tablet,delayed 500 mg PO BID 5 Days #10 tab 03/11/21 03/14/21 release Previous Rx's Medication Instructions Recorded atorvastatin 80 mg tablet 80 mg PO DAILY #90 tab 09/20/19 pantoprazole 40 mg tablet,delayed 40 mg PO DAILY #90 tab 09/20/19 release metoprolol succinate 50 mg 50 mg PO DAILY #90 tab 11/02/19 tablet,extended release 24 hr prednisone 20 mg tablet 20 mg PO DAILY #10 tab 02/04/21 hydroxyzine HCl 25 mg tablet See Rx Instructions PO QID PRN #60 02/12/21 tab topiramate 50 mg tablet 50 mg PO QHS #30 tab 02/26/21 divalproex 500 mg tablet,delayed 500 mg PO BID 5 Days #10 tab 03/11/21 release Allergies Allergy/AdvReac Type Severity Reaction Status Date / Time CAT DANDER Allergy Mild WATER EYES Uncoded 03/14/21 14:36 ENVIRONMENTAL/POLLEN Allergy Mild ITCHY NOSE Uncoded 03/14/21 14:36 WATERY EYES General Stated Complaint: Headache LUCILA: 2 Review of Systems All systems reviewed & are unremarkable except as noted in HPI and below Constitutional Constitutional: Denies frequent falls, Reports headache(s) and Denies weakness Eyes Eyes: Denies loss of vision ENT Ears, Nose, Mouth, and Throat: Denies dizziness and Reports headache(s) Musculoskeletal Musculoskeletal: Denies abnormal gait and Denies numbness Neurologic Neurologic: Reports as per HPI, Denies abnormal speech, Denies abnormal gait, Denies dizziness, Denies frequent falls, Reports headache(s), Denies localized weakness, Denies loss of vision, Denies numbness, Denies convulsions, Denies tremor(s) and Denies weakness [facility] Medical History Acne rosacea Alcohol abuse (02/14/14) 6 pack a day CHF (congestive heart failure), NYHA class II EF 40-50. Stable. He has a potential to revascularize over time and improve his EF. Dizziness GERD (gastroesophageal reflux disease) Inguinal hernia, unilateral repaired 1995- right side Kidney anomaly, congenital double collecting system; bladder diverticula Non-ST elevation myocardial infarction (NSTEMI) in recovery phase occurred during kidney surgery in 2019 Renal carcinoma October,, removed 1/2 kidney- left. 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 Total replacement of hip bilateral Family History Father Leukemia Grandfather Heart disease Grandmother Diabetes Social History Smoking/Tobacco Use Status: Never Second Hand Exposure: Yes Smoking risk assessment performed?: Yes Alcohol Intake: current Alcohol Intake frequency: 3 or more drinks per day Alcohol type: beer and wine Drug use: Never Substance use type: does not use Household members: none Housing: house Do you need help understanding health information?: Never Pets and animals: No Sexually active: No Current gender identity: male What is your relationship status?: How often do you talk on the phone with friends or family?: three or more times per week How often do you get together with friends or relatives?: once per week How often do you attend presybeterian or orthodox services?: decline to answer Do you belong to any clubs or organized social groups?: no Panel score (0-1 are the most socially isolated patients): 1 What type of physical activity do you participate in: none Kathia/Islam: No preference Seatbelt use: always Drive 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 Do you feel safe at home: Yes Do you feel safe in your relationship?: Yes Exam Const General: cooperative, comfortable, well developed and well groomed Nutritional Appearance: average body habitus Orientation: alert, awake and oriented x3 HENMT Head: normal to inspection and normocephalic Resp Effort & Inspection: normal respiratory effort, able to speak in complete sentences, no cough and not labored Auscultation: clear to auscultation bilaterally Cardio Rate: regular rate Rhythm: regular rhythm Heart Sounds: S1 normal, S2 normal, no gallops, no murmurs and no rubs Neuro General: patient alert, patient awake, patient oriented x3, gait normal, tone normal, moves all extremities, normal light touch, pain and propioception, no meningeal signs, no focal motor deficits and CN's II-XI intact bilaterally Cranial Nerves: EOM intact bilaterally and tongue midline Cognition: normal cognition Speech: speech normal Gait: normal gait Motor: muscle tone normal throughout, strength 5/5 throughout, no pronator drift, no movement abnormalities noted and no tremors Sensory Exam: no sensory deficits noted Course Vital Signs Vital signs: Vital Signs Temperature 36.7 C 03/14/21 14:33 Pulse 104 H 03/14/21 14:33 Respiratory Rate 20 03/14/21 14:33 Blood Pressure 151/78 H 03/14/21 14:33 Pulse Oximetry 97 03/14/21 14:33 Temperature 36.7 C 03/14/21 14:33 Temperature Source Skin 03/14/21 14:33 Pulse 104 H 03/14/21 14:33 Respiratory Rate 20 03/14/21 14:33 Respiratory Effort Non-Labored 03/14/21 14:38 Blood Pressure 151/78 H 03/14/21 14:33 Blood Pressure Position Sitting 03/14/21 14:33 Pulse Oximetry 97 03/14/21 14:33 Oxygen Delivery Method Room Air 03/14/21 14:33 Oxygen Flow Rate 0 03/14/21 14:33
[2021-03-14] MEDS: diphenhydrAMINE 50 MG/ML VIAL 25 MG IVP (15:17)
[2021-03-14] MEDS: Prochlorperazine 10 MG/2 ML VIAL IVP (15:18)
[2021-03-14 15:38] LABS: Abs Immature Grans 0.03 10^3/uL (0.0-0.06); Absolute Basophil Count 0.05 10^3/uL (0.0-0.2); Absolute Eosinophil Count 0.04 10^3/uL (0.0-0.7); Absolute Lymphocyte Count 1.67 10^3/uL (1.2-3.4); Absolute Monocyte Count 0.82 10^3/uL (0.1-0.8); Absolute Neutrophil Count 4.63 10^3/uL (1.2-6.7); Basophils % 0.7; Eosinophils % 0.6; HGB 16.1 g/dL (13.5-17.5); Immature Grans % 0.4; Lymphocytes % 23.1; MCH 34.9 pg (27.0-33.0); MCV 99.8 fL (80-95); MPV 11.4 fL (8.0-11.0); Monocytes % 11.3; Neutrophils % 63.9; Nucleated RBC 0 %; Platelet Count 133 10^3/uL (130-400); RBC 4.61 10^6/uL (4.36-5.78); RDW 11.4 % (11.8-14.1); RDW-SD 42.1 fL; WBC 7.24 10^3/uL (4.4-10.8)
[2021-03-14 15:48] LABS: ALT 38 U/L (16-63); AST 39 U/L (15-37); Albumin 3.5 g/dL (3.4-5.0); Alkaline Phosphatase 173 U/L (46-116); Anion Gap 12.5 mmol/L (3-11); BUN 15 mg/dL (7-18); CO2 22.5 mmol/L (21.0-32.0); CREATININE 1.2 mg/dL (0.70-1.30); Calcium 8.9 mg/dL (8.5-10.1); Chloride 100 mmol/L (98-107); Estimated GFR 59.02 (mL/min/1.73m2); Glucose 99 mg/dL (74-106); Potassium 3.8 mmol/L (3.5-5.1); Sodium 135 mmol/L (136-145); Total Protein 8.2 g/dL (6.4-8.2)
[2021-03-14] MEDS: Ketorolac 30 MG/ML VIAL IVP (16:15)
[2021-03-14] MEDS: MORPHine 4 MG/ML SYR IVP (16:15)
[2021-03-14 17:15] VITALS: BP 151/78; PULSE 89; RESP 20; TEMP 36.7; O2SAT 97
== END 2021-03-14 17:11 | disposition home or self-care (01) ==
PROVIDERS: Emergency Provider Registered Nurse Emergency; PCP Nurse Practitioner
DX: R51.9 Headache, unspecified (principal)
CPT/HCPCS: 80053; 96374; 96375; 99284; 70450; 81003; 85025; J0780; J1200; J1885; J2270

== ENCOUNTER → 2021-03-19 08:03 | Outpatient (BNVA) | payer MEDICARE, BC, SELFPAY | PROVIDERS: PCP Nurse Practitioner; Referring Provider Nurse Practitioner; Visit Provider Nurse Practitioner Adult Health | DX: G44.52 New daily persistent headache (NDPH) (principal) | CPT/HCPCS: 99214; 99215; G2212; J1885; J2550; 96372 ==

== ENCOUNTER → 2021-04-21 10:28 | Outpatient (BNVA) | payer MEDICARE, BC, SELFPAY | PROVIDERS: PCP Nurse Practitioner; Visit Provider Nurse Practitioner Adult Health | DX: R51.9 Headache, unspecified (principal); G89.29 Other chronic pain | CPT/HCPCS: 99213 ==

== ENCOUNTER → 2021-05-06 08:45 | Outpatient (BNVA) | payer MEDICARE, BC, SELFPAY | PROVIDERS: PCP Nurse Practitioner; Referring Provider Nurse Practitioner; Visit Provider Psychiatry & Neurology Neurology | DX: G44.52 New daily persistent headache (NDPH) (principal); G89.29 Other chronic pain; Z71.89 Other specified counseling | CPT/HCPCS: 99211 ==

== ENCOUNTER 2021-05-13 00:13 | Outpatient (CLI) | payer MEDICARE, BC, SELFPAY ==
[2021-05-13 12:26] LABS: CREATININE 0.9 mg/dL (0.70-1.30)
--- NOTE | 2021-05-13 13:10 | DI.CT_ITS ---
Exam(s) CT CHEST W EXAM: CT CHEST W CLINICAL HISTORY: RUL LUNG CA,C34.11,S/P RADIATION,ASSESS TREATMENT TO RESPONSE,H/O LT RENAL TECHNIQUE: Imaging Protocol: Axial computed tomography images with coronal and sagittal reformatted images were created and reviewed CONTRAST MATERIAL: Intravenous: Omnipaque 350 Contrast volume:70 ml. COMPARISON: CT CT CHEST/ABD/PEL W from 11/22/2020 FINDINGS: Tracheobronchial tree: No bronchiectasis or mucous plugging. Mediastinum and Aleena: No dominant adenopathy or fluid collection. Pulmonary parenchyma: No change in scarring and masslike density in the right upper lobe. No new pul monary nodules. No infiltrates. Pleura: No effusion or pneumothorax. Heart: The heart is not dilated. Heavy coronary artery calcifications are seen. Prior CABG. Aorta: Thoracic aorta non-dilated. No dissection Upper abdomen: Liver has a cirrhotic appearance. No focal mass. Spleen normal in size. Postsurgic al changes lower pole left kidney. No recurrence mass. No stones or hydronephrosis. Lymph nodes: Within normal limits. Bones: Ankylosis the spine. Sternal wires. Soft tissues: Unremarkable. IMPRESSION: Stable appearance of right upper lobe scarring/mass. No evidence of metastatic disease. Stable appe arance of partial nephrectomy lower pole left kidney. RADIATION DOSE DELIVERED: 660.65mGy.cm Total DLP DATA REPOSITORY: All CT scans at this facility are submitted to the National Radiology Data Registry (NRDR) Dose Index Registry (DIR) with the [employer] (ACR). RADIATION OPTIMIZATION: All CT scans at this facility use at least one of these dose optimization te chniques: automated exposure control; mA and/or kV adjustment per patient size (includes targeted exa ms where dose is matched to clinical indication); or iterative reconstruction.
[2021-05-13] MEDS: Normal Saline - Diluent 50 ML VIAL IV (13:15)
[2021-05-13] MEDS: Omnipaque 350 MG/ML 100 ML BTL 70 ML IJ (13:15)
== END 2021-05-13 00:33 ==
PROVIDERS: PCP Nurse Practitioner; Visit Provider Nurse Practitioner
DX: C34.11 Malignant neoplasm of upper lobe, right bronchus or lung (principal); R91.8 Other nonspecific abnormal finding of lung field
CPT/HCPCS: 71260; 82565; J3490

== ENCOUNTER → 2021-08-11 10:33 | Outpatient (BNVA) | payer MEDICARE, BC, SELFPAY | PROVIDERS: PCP Nurse Practitioner; Visit Provider Nurse Practitioner Adult Health | DX: G43.901 Migraine, unspecified, not intractable, with status migrainosus (principal); G89.29 Other chronic pain | CPT/HCPCS: 99213 ==

== ENCOUNTER → 2021-10-09 11:05 | Outpatient (BNVA) | payer MEDICARE, BC, SELFPAY | PROVIDERS: PCP Nurse Practitioner; Referring Provider Nurse Practitioner; Visit Provider Nurse Practitioner Adult Health | DX: R51.9 Headache, unspecified (principal); G89.29 Other chronic pain | CPT/HCPCS: 99211 ==

== ENCOUNTER 2021-11-05 02:59 | Outpatient (CLI) | payer MEDICARE, BC, SELFPAY ==
[2021-11-05 12:11] LABS: ALT 47 U/L (16-63); AST 54 U/L (15-37); Albumin 3.5 g/dL (3.4-5.0); Alkaline Phosphatase 312 U/L (46-116); Anion Gap 8.5 mmol/L (3-11); BUN 13 mg/dL (7-18); Bilirubin, Total 1.2 mg/dL (0.2-1.0); CO2 26.5 mmol/L (21.0-32.0); CREATININE 0.9 mg/dL (0.70-1.30); Calcium 8.7 mg/dL (8.5-10.1); Calculated LDL 46 mg/dL (<100); Chloride 107 mmol/L (98-107); Cholesterol 110 mg/dL (<200); Glucose 146 mg/dL (74-106); HDL Cholesterol 53 mg/dL (40-60); Potassium 3.5 mmol/L (3.5-5.1); Sodium 142 mmol/L (136-145); Total Protein 7.4 g/dL (6.4-8.2); Triglyceride 59 mg/dL (<150)
== END 2021-11-05 03:00 | disposition home or self-care (01) ==
LOC: LBO 03:00
PROVIDERS: PCP Nurse Practitioner; Visit Provider Nurse Practitioner Family
DX: I21.4 Non-ST elevation (NSTEMI) myocardial infarction (principal); C34.11 Malignant neoplasm of upper lobe, right bronchus or lung
CPT/HCPCS: 36415; 80048; 80053; 80061

== ENCOUNTER 2021-11-25 11:32 | Outpatient (CLI) | payer MEDICARE, BC, SELFPAY ==
--- NOTE | 2021-11-25 11:15 | DI.RAD_ITS ---
Exam(s) XR SHOULDER LT COMPLETE 2+V EXAM: XR SHOULDER LT COMPLETE 2+V CLINICAL HISTORY: Left shoulder pain. TECHNIQUE: 2D digital imaging was performed. COMPARISON: CR RIGHT SHOULDER COMPLETE from 11/03/2016 FINDINGS: Two views No evidence of fracture or dislocation. There are significant osteoarthritic degenerative changes gl enohumeral joint including opposing prominent osteophytes on the inferior articular surfaces of the h umeral head and osseous glenoid. There is also prominent undersurface osteophytic ridging at the lev el of the acromion and lateral aspect clavicle, consistent with probable impingement at this level. There are no distinct soft tissue calcifications although there is also a small bony excrescence on t he superior aspect greater tuberosity of the humeral head. Sternotomy wires are incidentally noted IMPRESSION: Degenerative changes as described above. DATA REPOSITORY: RADIATION DOSE DELIVERED:
== END 2021-11-25 11:33 | disposition home or self-care (01) ==
LOC: DIORS 11:33
PROVIDERS: PCP Nurse Practitioner; Referring Provider Nurse Practitioner; Visit Provider Student in an Organized Health Care Education/Training Program
DX: M19.012 Primary osteoarthritis, left shoulder (principal); M25.512 Pain in left shoulder
CPT/HCPCS: 99203; 99213; 73030

== ENCOUNTER → 2021-12-03 01:11 | Outpatient (CLI) | payer MEDICARE, BC, SELFPAY ==
--- NOTE | 2021-12-03 | DI.CT_ITS ---
Exam(s) CT CHEST/ABD/PEL WO EXAM: CT CHEST/ABD/PEL WO CLINICAL HISTORY: S/P SBRT RUL PRIM ADENOCARCINOMA, H/O RCC, C34.11. TECHNIQUE: Imaging Protocol: Axial computed tomography images with coronal and sagittal reformatted images were created and reviewed CONTRAST MATERIAL: Intravenous: none (contrast shortage contingency protocol) Oral: Yes. Oral contrast was administered for bowel opacification. COMPARISON: CT CT CHEST/ABD/PEL W from 11/22/[address] CHEST W from 05/13/2021 CR XR SHOULDER LT COMPLETE 2+V from 11/25/2021 FINDINGS: CHEST: LUNGS: The previously described scarring and masslike density in the sub apical aspect of the right u pper lobe is unchanged.. There is a 3 millimeter nodule in the peripheral aspect right upper lobe now evident, not previously present (series 3/image 14). There also others similar size (not previously present) has nodules thr oughout the right lung, not previously present and therefore suspicious for metastatic disease. The largest of these nodules in the right lung measures 8 x 7 millimeters, located in the right lower lob e. Similar size nodules are also seen throughout the left lung, not previously present. There are n o pleural effusions. No significant focal findings in trachea and mainstem bronchi. MEDIASTINUM: No obvious hilar nor mediastinal adenopathy. Visualized thyroid unremarkable. CARDIAC: Sternotomy wires. Heart size normal. No pericardial effusion. Coronary artery calcificati on noted. Caliber of the thoracic aorta is upper normal. OSSEOUS: No lytic osseous lesions identified. No fractures.. ABDOMEN: There is no ascites. LIVER: The liver the is again noted be cirrhotic with enlarged caudate lobe again noted and nodular l iver contour again noted. GALLBLADDER/BILIARY: No obvious gallbladder pathology. CBD is not dilated. PANCREAS: No evidence of obvious pancreatic mass nor dilatation of the pancreatic duct. SPLEEN: Spleen is not enlarged. No obvious intrasplenic lesions. ADRENALS: There are no significant adrenal masses. KIDNEYS: No calculi nor hydronephrosis. No new obvious solid renal masses. Surgical site in the infer ior pole of the left kidney appears unchanged with no new significant mass at this level. ABDOMINAL AORTA: Abdominal aorta is not enlarged. LYMPH NODES: There is no retroperitoneal nor para-aortic adenopathy. ABDOMINAL WALL/GI: No evidence of significant anterior abdominal wall nor inguinal hernia. No evidence of bowel obstruction. PELVIS: LYMPH NODES: There is no intrapelvic nor inguinal adenopathy. GI: No evidence of appendicitis.No evidence of sigmoid diverticulitis. 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 Bladder is partially obscured by beam hardening artifact from bilateral hip pros theses. REPRODUCTIVE: Prostate not obviously enlarged but partially obscured by beam hardening artifact from the bilateral hip prostheses. Right inguinal [place] again noted, possibly undescended testicle OSSEOUS: No significant osseous lesions. Ankylosis of the SI joints noted. Spinal findings which are probably consistent with element of anky losing spondylitis. IMPRESSION: 1. Compared to the prior studies there are now numerous small nodules throughout both lung ch and suspicious for metastatic disease. No pleural effusions nor intrathoracic adenopathy. 2. Masslike density in the right upper lobe is unchanged. 3. Evidence of previous left kidney inferior pole partial nephrectomy again noted with no evidence of recurrence mass at this location nor other ominous renal masses. No hydronephrosis. Previous sternotomy. Changes of ankylosing spondylitis in the spinal column and sacroiliac joints. RADIATION DOSE DELIVERED: 1,130.25mGy.cm Total DLP DATA REPOSITORY: All CT scans at this facility are submitted to the National Radiology Data Registry (NRDR) Dose Index Registry (DIR) with the [employer] (ACR). RADIATION OPTIMIZATION: All CT scans at this facility use at least one of these dose optimization te chniques: automated exposure control; mA and/or kV adjustment per patient size (includes targeted exa ms where dose is matched to clinical indication); or iterative reconstruction.
== END ==
PROVIDERS: PCP Nurse Practitioner; Visit Provider Nurse Practitioner Family
DX: C34.11 Malignant neoplasm of upper lobe, right bronchus or lung (principal); J98.4 Other disorders of lung; K74.60 Unspecified cirrhosis of liver; Z96.643 Presence of artificial hip joint, bilateral; M45.8 Ankylosing spondylitis sacral and sacrococcygeal region; M45.0 Ankylosing spondylitis of multiple sites in spine
CPT/HCPCS: 71250; 74176

== ENCOUNTER 2021-12-25 02:19 | Outpatient (CLI) | payer MEDICARE, BC, SELFPAY ==
[2021-12-25 14:03] LABS: Anion Gap 8.8 mmol/L (3-11); BUN 13 mg/dL (7-18); CO2 26.2 mmol/L (21.0-32.0); CREATININE 1.1 mg/dL (0.70-1.30); Chloride 104 mmol/L (98-107); Glucose 115 mg/dL (74-106); Potassium 3.9 mmol/L (3.5-5.1); Sodium 139 mmol/L (136-145)
[2021-12-26 10:19] LABS: Lyme Ab w Rflx to Lyme Confirm Negative (Negative)
[2021-12-28 01:09] LABS: Anaplasma phagocytophilum Negative (Negative); B. miyamotoi PCR Negative (Negative); Babesia divergens/MO-1 Negative (Negative); Babesia duncani Negative (Negative); Babesia microti Negative (Negative); Ehrlichia chaffeensis Negative (Negative); Ehrlichia ewingii/canis Negative (Negative); Ehrlichia muris eauclairensis Negative (Negative)
== END 2021-12-25 02:20 | disposition home or self-care (01) ==
LOC: LBO 02:19
PROVIDERS: PCP Nurse Practitioner; Visit Provider Nurse Practitioner
DX: I10 Essential (primary) hypertension (principal); W57.XXXA Bitten or stung by nonvenomous insect and other nonvenomous arthropods, initial encounter; T14.8XXA Other injury of unspecified body region, initial encounter
CPT/HCPCS: 36415; 80048; 87798; 86618

== ENCOUNTER → 2022-02-24 13:00 | Outpatient (BNVA) | payer MEDICARE, BC, SELFPAY | PROVIDERS: PCP Nurse Practitioner; Referring Provider Nurse Practitioner; Visit Provider Student in an Organized Health Care Education/Training Program | DX: R69 Illness, unspecified (principal) ==